=== PATIENT | female | born 1980 | race Caucasian/White ===

== ENCOUNTER 2019-04-28 11:37 | Emergency (ER) | payer OTHER ==
[~2019-04-28] VITALS: Ht 160 cm; Wt 88.5 kg
[2019-04-28] MEDS ORDERED: Prednisone20 MG PO (12:20)
== END 2019-04-28 12:28 | disposition home or self-care (01) ==
LOC: ER 11:37
DX: J32.0 Chronic maxillary sinusitis (principal); F17.200 Nicotine dependence, unspecified, uncomplicated; Z88.6 Allergy status to analgesic agent
CPT/HCPCS: 99283

== ENCOUNTER 2020-03-02 10:53 | Emergency (ER) | payer OTHER ==
[~2020-03-02] VITALS: Ht 160 cm; Wt 87.5 kg
[~2020-03-02 10:53] MED LIST: Prednisone20 MG PO
[2020-03-02 11:59] LABS: BASOPHILS PERCENT AUTO 1 % (0-2); EOSINOPHILS ABSOLUTE AUTO 0.18 K/mm3 (0.00-0.68); EOSINOPHILS PERCENT AUTO 2 % (0-6); Hematocrit 41.5 % (33.0-51.0); Hemoglobin 13.7 g/dL (11.5-16.0); IMMATURE GRAN ABSOLUTE AUTO 0.02 K/mm3 (0.00-0.10); IMMATURE GRAN PERCENT AUTO 0 % (0-1); LYMPHOCYTES ABSOLUTE AUTO 2.57 K/mm3 (0.84-5.20); LYMPHOCYTES PERCENT AUTO 29 % (21-46); MONOCYTES ABSOLUTE AUTO 0.54 K/mm3 (0.16-1.47); MONOCYTES PERCENT AUTO 6 % (4-13); Mean Corpuscular HGB 30.4 pg (26.0-34.0); Mean Corpuscular Volume 92 fL (80-100); Mean Platelet Volume 10.7 fL (9.1-12.4); NEUTROPHILS ABSOLUTE AUTO 5.45 K/mm3 (1.96-9.15); NEUTROPHILS PERCENT AUTO 62 % (41-73); Platelet Count 297 K/mm3 (150-400); RDW Coefficient Variation 13.3 % (11.7-14.2); RDW Standard Deviation 45.3 fL (35.1-46.3); White Blood Cell Count 8.86 K/mm3 (4.00-11.30)
[2020-03-02 12:10] LABS: Alanine Aminotransfer (ALT/SGP 51 U/L (12-78); Albumin, Blood 3.8 g/dL (3.4-5.0); Albumin/Globulin Ratio 1.1 (0.8-1.8); Alk Phos 75 U/L (50-136); Anion Gap 7 mmol/L (6-16); Aspartate Aminotrans (AST/SGOT 72 U/L (12-37); Bilirubin, Total 0.4 mg/dL (0.1-1.0); Blood Urea Nitrogen 16 mg/dL (8-24); CO2, Blood 23 mmol/L (21-32); Calcium, Blood 9.2 mg/dL (8.5-10.1); Chloride, Blood 108 mmol/L (98-108); Creatinine, Blood 0.84 mg/dL (0.40-1.00); Globulin, Blood 3.6 g/dL (2.2-4.0); Glomerular Filtration Rate >60 (60-); Glucose, Blood 91 mg/dL (70-99); Sodium, Blood 138 mmol/L (136-145); Total Protein, Blood 7.4 g/dL (6.4-8.2); Troponin I <0.015 ng/mL (0.000-0.040)
== END 2020-03-02 14:09 | disposition home or self-care (01) ==
LOC: ER 10:53
PROVIDERS: Emergency Medicine
DX: R10.13 Epigastric pain (principal); Z88.6 Allergy status to analgesic agent; Z79.52 Long term (current) use of systemic steroids
CPT/HCPCS: 71045; 80053; 83690; 84484; 85025; 85379; 93005; 93010; 96374; 99285-25; A9270; J1170

== ENCOUNTER 2020-07-17 08:47 | Emergency (ER) | payer OTHER ==
[~2020-07-17] VITALS: Ht 165.1 cm; Wt 79.4 kg
[2020-07-17] MEDS ORDERED: Norco 5-325 Ta1 EACH PO (09:19)
[2020-07-17] MEDS ORDERED: ONDA4ODT MM (09:19)
== END 2020-07-17 09:44 | disposition home or self-care (01) ==
LOC: ER 08:47
DX: M54.42 Lumbago with sciatica, left side (principal); Z91.010 Allergy to peanuts; Z88.6 Allergy status to analgesic agent
CPT/HCPCS: 96372; 99283-25; A9270; J1100; J1885

== ENCOUNTER 2021-05-27 06:27 | Emergency (ER) | payer OTHER ==
[~2021-05-27] VITALS: Ht 167.6 cm; Wt 94.3 kg
[~2021-05-27 06:27] MED LIST changes: +Norco 5-325 Ta1 EACH PO; +ONDA4ODT MM
[2021-05-27 08:30] LABS: Source, Urine Clean Catch
[2021-05-27 08:34] LABS: Bilirubin, Urine Neg (Neg); Blood, Urine 1+ (Neg); Glucose Qualitative, Urine Neg (Neg); Ketones, Urine 2+ (Neg); Leukocyte Esterase, Urine 3+ (Neg); Nitrite, Urine Neg (Neg); Protein, Urine 1+ (Neg); Specific Gravity, Urine 1.025 (1.003-1.022); Urobilinogen, Urine NORM (Normal)
[2021-05-27 08:41] LABS: Appearance, Urine Cloudy (Clear); Color, Urine Yellow (P-Yellow)
[2021-05-27 08:42] LABS: Mucus Light (0-Heavy); Squamous Epithelial Cells Many /hpf (Few)
[2021-05-27 08:43] LABS: Bacteria Mod /hpf
== END 2021-05-27 09:50 | disposition home or self-care (01) ==
LOC: ER 06:27
PROVIDERS: Emergency Medicine
DX: J06.9 Acute upper respiratory infection, unspecified (principal); H73.891 Other specified disorders of tympanic membrane, right ear; Z79.899 Other long term (current) drug therapy
CPT/HCPCS: 81001; 87086; 99284

== ENCOUNTER 2021-09-11 08:55 | Emergency (ER) | payer OTHER ==
[~2021-09-11] VITALS: Ht 167.6 cm; Wt 88.5 kg
[2021-09-11] MEDS ORDERED: Zofran4 MG PO (09:07)
== END 2021-09-11 09:19 | disposition home or self-care (01) ==
LOC: ER 08:55
DX: U07.1 COVID-19 (principal); Z88.6 Allergy status to analgesic agent; Z91.010 Allergy to peanuts
CPT/HCPCS: A9270

== ENCOUNTER 2022-01-05 00:46 | Emergency (ER) | payer OTHER ==
[~2022-01-05] VITALS: Ht 175.3 cm; Wt 94.3 kg
[~2022-01-05 00:46] MED LIST changes: +Zofran4 MG PO
[2022-01-05 02:29] LABS: Influenza B, PCR NEGATIVE (NEGATIVE); Resp Syncytial Virus, PCR NEGATIVE (NEGATIVE); SARS-Cov-2 (COVID-19) PCR, MMC NEGATIVE (NEGATIVE)
[2022-01-05 02:52] LABS: Influenza A, PCR POSITIVE (NEGATIVE)
== END 2022-01-05 01:20 | disposition left against medical advice (07) ==
LOC: ER 00:46
PROVIDERS: Student in an Organized Health Care Education/Training Program
DX: R05.9 Cough, unspecified (principal); Z53.21 Procedure and treatment not carried out due to patient leaving prior to being seen by health care provider; Z20.822 Contact with and (suspected) exposure to COVID-19
CPT/HCPCS: 0241U

== ENCOUNTER 2022-09-06 21:04 | Emergency (ER) | payer OTHER ==
[~2022-09-06] VITALS: Ht 170.2 cm; Wt 94.3 kg
[2022-09-06 21:34] LABS: BASOPHILS ABSOLUTE AUTO 0.09 K/mm3 (0.00-0.23); BASOPHILS PERCENT AUTO 1 % (0-2); EOSINOPHILS ABSOLUTE AUTO 0.23 K/mm3 (0.00-0.68); EOSINOPHILS PERCENT AUTO 2 % (0-6); Hematocrit 38.5 % (33.0-51.0); Hemoglobin 12.9 g/dL (11.5-16.0); IMMATURE GRAN ABSOLUTE AUTO 0.02 K/mm3 (0.00-0.10); IMMATURE GRAN PERCENT AUTO 0 % (0-1); LYMPHOCYTES ABSOLUTE AUTO 3.08 K/mm3 (0.84-5.20); LYMPHOCYTES PERCENT AUTO 30 % (21-46); MONOCYTES ABSOLUTE AUTO 0.84 K/mm3 (0.16-1.47); MONOCYTES PERCENT AUTO 8 % (4-13); Mean Corpuscular HGB 31.1 pg (26.0-34.0); Mean Corpuscular HGB Conc 33.5 g/dL (31.5-36.5); Mean Corpuscular Volume 93 fL (80-100); Mean Platelet Volume 10.8 fL (9.1-12.4); NEUTROPHILS ABSOLUTE AUTO 5.98 K/mm3 (1.96-9.15); NEUTROPHILS PERCENT AUTO 58 % (41-73); Platelet Count 258 K/mm3 (150-400); RDW Coefficient Variation 13.2 % (11.7-14.2); RDW Standard Deviation 45.1 fL (35.1-46.3); Red Blood Cell Count 4.15 M/mm3 (3.80-5.20); White Blood Cell Count 10.24 K/mm3 (4.00-11.30)
[2022-09-06 21:59] LABS: Albumin, Blood 3.8 g/dL (3.4-5.0); Albumin/Globulin Ratio 1.2 (0.8-1.8); Bilirubin, Total 0.3 mg/dL (0.1-1.0); Calcium, Blood 8.6 mg/dL (8.5-10.1); Creatinine, Blood 0.93 mg/dL (0.40-1.00); Globulin, Blood 3.3 g/dL (2.2-4.0); Potassium, Blood 3.9 mmol/L (3.5-5.5); Total Protein, Blood 7.1 g/dL (6.4-8.2)
[2022-09-07 00:47] VITALS: BP 111/61
== END 2022-09-07 00:47 | disposition home or self-care (01) ==
LOC: ER 21:04
PROVIDERS: Emergency Medicine
DX: R07.89 Other chest pain (principal); R55 Syncope and collapse; I25.2 Old myocardial infarction; Z88.6 Allergy status to analgesic agent
CPT/HCPCS: 71045; 80053; 84484; 85025; 85379; 93005; 93010; 96374; 99285-25; J2405

== ENCOUNTER 2022-10-02 07:56 | Observation (INO) | payer OTHER ==
[~2022-10-02] VITALS: Ht 170.2 cm; Wt 92.5 kg
--- NOTE | 2022-10-02 08:15 | NUR ---
PT ADMIT TO ROOM, WALKIN FROM [place]. A/O X3, DENIES CHEST PAIN, OR PRESSURE AT THIS TIME. H/R REG, BUT NURIS, 54. NO MURMUR NOTED. NO TELE ORDER YET. NO EDEMA. LUNGS CLEAR, RESP EASY, UNLABORED. ON R.A. BT X4 LAST BM YEST PER PT. VOIDS SBA TO BATHROOM. FALL RISK. HAS PASSED OUT AT HOME IN LAST FEW DAYS. LITE BRUISE RT JAW. PT EXPRESSES ABILITY TO CALL FOR ASST FOR AMBULATION. BED IN LOW POSITION, CALL LITE IN REACH, CALLS APPROP. DR BAKER CALLED AND ADVISED PT IN ROOM. ORDER FOR TELE. MIGUEL ÁNGEL WOLF.
[2022-10-02 08:19] VITALS: BP 116/62
[2022-10-02 10:00] LABS: BASOPHILS ABSOLUTE AUTO 0.07 K/mm3 (0.00-0.23); BASOPHILS PERCENT AUTO 1 % (0-2); EOSINOPHILS ABSOLUTE AUTO 0.08 K/mm3 (0.00-0.68); EOSINOPHILS PERCENT AUTO 1 % (0-6); Hematocrit 38.2 % (33.0-51.0); Hemoglobin 12.9 g/dL (11.5-16.0); IMMATURE GRAN ABSOLUTE AUTO 0.04 K/mm3 (0.00-0.10); IMMATURE GRAN PERCENT AUTO 0 % (0-1); LYMPHOCYTES ABSOLUTE AUTO 1.64 K/mm3 (0.84-5.20); LYMPHOCYTES PERCENT AUTO 18 % (21-46); MONOCYTES ABSOLUTE AUTO 0.71 K/mm3 (0.16-1.47); MONOCYTES PERCENT AUTO 8 % (4-13); Mean Corpuscular HGB 30.4 pg (26.0-34.0); Mean Corpuscular HGB Conc 33.8 g/dL (31.5-36.5); Mean Corpuscular Volume 90 fL (80-100); NEUTROPHILS ABSOLUTE AUTO 6.61 K/mm3 (1.96-9.15); NEUTROPHILS PERCENT AUTO 72 % (41-73); Platelet Count 204 K/mm3 (150-400); RDW Standard Deviation 42.5 fL (35.1-46.3); Red Blood Cell Count 4.24 M/mm3 (3.80-5.20); White Blood Cell Count 9.15 K/mm3 (4.00-11.30)
[2022-10-02 10:17] LABS: Magnesium, Blood 2.1 mg/dL (1.6-2.4)
[2022-10-02 10:27] LABS: Albumin, Blood 3.7 g/dL (3.4-5.0); Albumin/Globulin Ratio 1.2 (0.8-1.8); Bilirubin, Total 0.6 mg/dL (0.1-1.0); Bun/Creatinine Ratio 11.9 (12.0-20.0); Calcium, Blood 8.5 mg/dL (8.5-10.1); Creatinine, Blood 0.76 mg/dL (0.40-1.00); Globulin, Blood 3.2 g/dL (2.2-4.0); Phosphorus, Blood 2.9 mg/dL (2.5-4.9); Potassium, Blood 3.7 mmol/L (3.5-5.5); Thyroid Stimulating Hormone 3.24 uIU/mL (0.360-4.800); Total Protein, Blood 6.9 g/dL (6.4-8.2)
--- NOTE | 2022-10-02 11:23 | NUR ---
PER ULTRASOUND, PT TO UNDERGO STRESS TEST HALF TODAY, HALF TOMORROW. PICS AT 11AM TODAY. OKAY TO EAT. NO CAFFEINE AFTER 7PM TONITE (TUES). NPO MIDNITE EXCEPT H2O AND MEDS.
[2022-10-02 15:24] VITALS: BP 111/58
--- NOTE | 2022-10-02 16:52 | NUR ---
Upon receiving a referral for spiritual care, I visited the patient. She tells me about her medical problems and her fears associated with them. 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 I normalize her experince, and provide therapeutic listening, anxiety containment and a calming presence. Patient responded well and showed signs of reduced stress. I will continue to remain available to patient and family.
--- NOTE | 2022-10-02 19:25 | NUR ---
pt quite pleasant today. no c/o chest pain or pressure. part 1 stress test done today. npo midnite and no caffeine after 7pm tonite. juno harris notified at report. pt admits to sob for last few days. no other symptoms reported. h/r is edilia. dr notified. ekg done and dr called. no other concerns noted. bed in low [facility], call lite in reach calls aprop
[2022-10-02 20:07] VITALS: BP 115/62
[2022-10-02 23:28] VITALS: BP 115/63
--- NOTE | 2022-10-03 00:08 | NUR ---
AT 23:25 TELE REPORTS BRIEF EPISODE OF HR NURIS IN 30s. PATIENT STATES SHE WAS JUST SLEEPING. STATES BRIEF, 3/10 MILD CHEST PAIN UPON BEING WOKEN UP, DENIES ALL OTHER SYMPTOMS. OBTAINED VS, NO ACUTE CHANGES. PROVIDER NOTIFIED, NO NEW ORDERS, WILL OBTAIN EKG IF NURIS IN 30s AGAIN.
[2022-10-03 04:35] VITALS: BP 113/56
--- NOTE | 2022-10-03 04:46 | NUR ---
SHIFT SUMMARY PATIENT A/0x4, DENIES PAIN NOR DISCOMFORT AT TIME OF ASSESSMENT. COMPLIANT WITH NPO STATUS. CONTINUES ON TELEMETRY, HAD BRIEF EPISODE OF SB IN 30s, PROVIDER AWARE, NO FURTHER EVENTS AT THIS TIME, CONTINUES TO BE NURIS IN 50s. INDEPENDANT IN ROOM. PIV TO LEFT AC, PATENT, SL. C/O HEADACHE THIS AM, RECEIVED NEW ORDER FOR PRN TYLENOL, eMAR UPDATED. DENIES CHEST PAIN/PRESSURE AT THIS TIME. BED LOW, CALL LIGHT WITHIN REACH.
[2022-10-03 05:01] LABS: BASOPHILS ABSOLUTE AUTO 0.08 K/mm3 (0.00-0.23); BASOPHILS PERCENT AUTO 1 % (0-2); EOSINOPHILS ABSOLUTE AUTO 0.14 K/mm3 (0.00-0.68); EOSINOPHILS PERCENT AUTO 2 % (0-6); Hematocrit 37.6 % (33.0-51.0); Hemoglobin 12.8 g/dL (11.5-16.0); IMMATURE GRAN ABSOLUTE AUTO 0.02 K/mm3 (0.00-0.10); IMMATURE GRAN PERCENT AUTO 0 % (0-1); LYMPHOCYTES ABSOLUTE AUTO 1.98 K/mm3 (0.84-5.20); LYMPHOCYTES PERCENT AUTO 25 % (21-46); MONOCYTES ABSOLUTE AUTO 0.85 K/mm3 (0.16-1.47); MONOCYTES PERCENT AUTO 11 % (4-13); Mean Corpuscular HGB 30.8 pg (26.0-34.0); Mean Corpuscular Volume 91 fL (80-100); Mean Platelet Volume 10.3 fL (9.1-12.4); NEUTROPHILS PERCENT AUTO 61 % (41-73); Platelet Count 221 K/mm3 (150-400); RDW Coefficient Variation 12.9 % (11.7-14.2); RDW Standard Deviation 42.9 fL (35.1-46.3); Red Blood Cell Count 4.15 M/mm3 (3.80-5.20); White Blood Cell Count 7.87 K/mm3 (4.00-11.30)
[2022-10-03 05:34] LABS: Albumin, Blood 3.4 g/dL (3.4-5.0); Anion Gap 9 mmol/L (6-16); Blood Urea Nitrogen 11 mg/dL (8-24); Bun/Creatinine Ratio 13.9 (12.0-20.0); CHOL/HDL RATIO 2.8; CO2, Blood 21 mmol/L (21-32); Calcium, Blood 8.4 mg/dL (8.5-10.1); Chloride, Blood 113 mmol/L (98-108); Cholesterol 136 mg/dL (50-200); Creatinine, Blood 0.79 mg/dL (0.40-1.00); Glomerular Filtration Rate 95 (60-); Glucose, Blood 89 mg/dL (70-99); HDL Cholesterol 48 mg/dL (>39); LDL/HDL RATIO 1.6; Low Density Lipoprotein Chol 78 mg/dL (0-110); Magnesium, Blood 2.1 mg/dL (1.6-2.4); Phosphorus, Blood 3.4 mg/dL (2.5-4.9); Potassium, Blood 3.8 mmol/L (3.5-5.5); Sodium, Blood 143 mmol/L (136-145); Triglycerides 49 mg/dL (30-160); Very Low Density Lipoprot Chol 9 mg/dL (6-32)
[2022-10-03 07:31] VITALS: BP 96/63
--- NOTE | 2022-10-03 11:58 | NUR ---
Patient is sitting up in bed and alert. She tells me about the concerning events that happened the prior night and the fears that she has going into this day. She shares about how her kids and grandkids are a source of inspiration to her, she also explains about a daily Bible devotion that she reads from her phone every morningthat encourages her as well. I provide therapetuic listening, anxiety containment and prayer. Patient responded well and displayed evidence of reduced stress. I will continue to remain available to patient and family.
[2022-10-03 14:58] VITALS: BP 112/64
--- NOTE | 2022-10-03 15:51 | NUR ---
SHIFT SUMMARY PT AWAKE DURING SHIFT REPORT THIS AM, WATCHING TV. PT WAS NPO FOR STRESS TEST THIS AM. NUC MED CALLED TO REPORT PT TO EAT BREAKFAST AND THEN BE NPO EXCEPT WATER AT LUNCH. HRT CENTER TO THIS AFTERNOON AND THEN PT ALLOWED TO EAT LUNCH. PT TAKE DOWN TO IMAGING FOR MORE PICTURES AFTER THAT. UP INDEPENDENTLY IN AND TO [facility]. C/O RICH D/T LACK OF CAFFIENE; MEDICATED PER EMAR AND DR BAKER. PT LATER REPORTED NAUSEA D/T INJECTION OF STRESS TEST MEDICATIONS; REQUESTED SPRITE AND SALTINES. RESTING QUIETLY WATCHING TV AT THIS TIME. DENIES FURTHER NEEDS. CALL LT IN REACH. DR BAKER TO RETURN LATER TO UPDATE PT ON STRESS TEST RESULTS.
[2022-10-03 19:39] VITALS: BP 111/70
[2022-10-03 22:34] VITALS: BP 112/65
--- NOTE | 2022-10-03 22:48 | NUR ---
PATIENT HAVING AN EPISODE OF CHEST PAIN 07/21 THAT STARTED SUDDENLY. TRAV KESSLER NOTIFIED AND TORADOL AND NITOR X1 DOSE ORDERED. PATIENT IS NOT SHORT OF BREATH AND VITAL SIGNS STABLE THIS TIME. NO CHANGES ON TELEMETRY, PATIENT REMAINS SINUS NURIS IN THE 50'S.
[2022-10-04 03:57] VITALS: BP 119/63
--- NOTE | 2022-10-04 05:38 | NUR ---
PATIENT SLEPT WELL AFTER EPISODE OF 6/10 CHEST PAIN. PATIENT WANTED TO TRY TORADOL FOR PAIN BEFORE TRYING NITRO AND TORADOL WAS AFFECTIVE. PATIENT SINUS NURIS ON TELE, DID HAVE A 2 EPISODES WHERE HR WENT DOWN IN THE 30'S WHILE PATIENT ASLEEP. PATIENT IS A/OX4, UP INDEPENDENTLY IN ROOM. NO OTHER CHANGES THIS SHIFT.
[2022-10-04 07:50] VITALS: BP 103/59
[2022-10-04 10:03] VITALS: BP 110/59
[2022-10-04 10:04] VITALS: BP 107/65
[2022-10-04 10:06] VITALS: BP 118/70
--- NOTE | 2022-10-04 14:34 | NUR ---
PT AWAKE DURING SHIFT REPORT, SITTING UP IN BED. PT HOPING TO GO HOME THIS AM. DR BAKER IN EARLY TO SEE PT AND DISCUSS PLAN OF CARE. DR BAKER WALKED PT IN HALLS AND STAIRWAY WHILE ON TELE TO [facility] HRT RATE. ORTHOSTATIC VS COMPLETED PER ORDERS WELL LAB ORDER. D/C ORDERS PLACED AND REVIEWED WITH PT; VERBALIZED UNDERSTANDING. PT TO F/U AT [facility] PER ORDERS. PCP TO ASSIST PT IN F/U WITH CARDIOLOGY AND ADDITIONAL LAB WORK OUTPT. IV SITE D/C'D WNL'S. PT UP TO SHOWER INDEPENDENTLY AND THEN CALLED TO PICK HER UP. PT DENIED FURTHER NEEDS. D/C INSTRUCTIONS GIVEN. NO NEW MEDICATIONS ORDERED.
[2022-10-10 22:06] LABS: IGG P18 AB. Absent (.); IGG P23 AB. Absent (.); IGG P28 AB. Absent (.); IGG P30 AB. Absent (.); IGG P39 AB. Absent (.); IGG P41 AB. Absent (.); IGG P45 AB. Absent (.); IGG P58 AB. Absent (.); IGG P66 AB. Absent (.); IGG P93 AB. Absent (.); IGM P23 AB. Absent (.); IGM P39 AB. Absent (.); IGM P41 AB. Absent (.); LYME IGG LB INTERP. Negative (.); LYME IGM LB INTERP. Negative (.)
== END 2022-10-04 13:25 | disposition home or self-care (01) ==
LOC: MEDS 07:56
PROVIDERS: ADMIT Family Medicine
DX: R07.89 Other chest pain (principal); R00.1 Bradycardia, unspecified; F41.9 Anxiety disorder, unspecified; F32.A Depression, unspecified; Z87.891 Personal history of nicotine dependence; F12.980 Cannabis use, unspecified with anxiety disorder
CPT/HCPCS: 36415; 78452; 80053; 80061; 80069; 83036; 83735; 84100; 84443; 84484; 85025; 93017; 93306; 96372; 96374; A9270; A9500; G0378; G0379; J1644; J1885; J2785

== ENCOUNTER → 2023-02-06 | Outpatient (CLI) | payer OTHER ==
[2023-02-07 09:45] LABS: Candida species (DNA Probe) Negative (NEGATIVE); G. vaginalis (DNA Probe) Positive (NEGATIVE); T. vaginalis (DNA Probe) Negative (NEGATIVE)
[2023-02-08 18:09] LABS: C. TRACHOMATIS BY TMA,THINPREP Negative (Negative); N. GONORRHOEAE BY TMA,THINPREP Negative (Negative); SPECIMEN SOURCE Cervical
== END | disposition home or self-care (01) ==
LOC: LAB 11:16 → LAB SHORT 11:16
PROVIDERS: Advanced Practice Midwife
DX: Z01.419 Encounter for gynecological examination (general) (routine) without abnormal findings (principal); Z11.3 Encounter for screening for infections with a predominantly sexual mode of transmission; N76.0 Acute vaginitis
CPT/HCPCS: 87480; 87510; 87660

== ENCOUNTER → 2023-03-01 | Outpatient (CLI) | payer OTHER | LOC: LAB 13:33 → LAB SHORT 13:33 | DX: D06.9 Carcinoma in situ of cervix, unspecified (principal) | CPT/HCPCS: 88305 ==

== ENCOUNTER 2023-11-05 19:10 | Emergency (ER) | payer OTHER ==
[~2023-11-05] VITALS: Ht 167.6 cm; Wt 92.1 kg
[2023-11-05] MEDS ORDERED: QUETIAPINE FUM10011 PO (19:18)
[2023-11-05] MEDS ORDERED: TERB250 PO (19:18)
[2023-11-05] MEDS ORDERED: Ondansetron HCl 2 MG / ML 2ML Vial IV PRN (19:20)
[2023-11-05 20:00] LABS: BASOPHILS ABSOLUTE AUTO 0.07 K/mm3 (0.00-0.23); BASOPHILS PERCENT AUTO 1 % (0-2); EOSINOPHILS ABSOLUTE AUTO 0.06 K/mm3 (0.00-0.68); EOSINOPHILS PERCENT AUTO 1 % (0-6); Hematocrit 43.5 % (33.0-51.0); Hemoglobin 14.6 g/dL (11.5-16.0); IMMATURE GRAN ABSOLUTE AUTO 0.04 K/mm3 (0.00-0.10); IMMATURE GRAN PERCENT AUTO 0 % (0-1); LYMPHOCYTES ABSOLUTE AUTO 1.22 K/mm3 (0.84-5.20); LYMPHOCYTES PERCENT AUTO 12 % (21-46); MONOCYTES PERCENT AUTO 10 % (4-13); Mean Corpuscular HGB 30.9 pg (26.0-34.0); Mean Corpuscular HGB Conc 33.6 g/dL (31.5-36.5); Mean Corpuscular Volume 92 fL (80-100); Mean Platelet Volume 9.6 fL (9.1-12.4); NEUTROPHILS ABSOLUTE AUTO 7.68 K/mm3 (1.96-9.15); NEUTROPHILS PERCENT AUTO 76 % (41-73); Platelet Count 276 K/mm3 (150-400); RDW Coefficient Variation 13.7 % (11.7-14.2); RDW Standard Deviation 46.9 fL (35.1-46.3); Red Blood Cell Count 4.73 M/mm3 (3.80-5.20); White Blood Cell Count 10.07 K/mm3 (4.00-11.30)
[2023-11-05 20:20] LABS: Albumin, Blood 3.7 g/dL (3.4-5.0); Albumin/Globulin Ratio 0.9 (0.8-1.8); Bilirubin, Total 0.3 mg/dL (0.1-1.0); Calcium, Blood 9.2 mg/dL (8.5-10.1); Creatinine, Blood 0.8 mg/dL (0.40-1.00); Globulin, Blood 4.3 g/dL (2.2-4.0); Potassium, Blood 3.8 mmol/L (3.5-5.5)
[2023-11-05] MEDS ORDERED: NS 1,000 ML IV SCH (22:20)
[2023-11-05 22:48] LABS: Source, Urine Clean Catch
[2023-11-05 22:50] LABS: Bilirubin, Urine Neg (Neg); Blood, Urine Neg (Neg); Glucose Qualitative, Urine Neg (Neg); Ketones, Urine 2+ (Neg); Leukocyte Esterase, Urine 1+ (Neg); Nitrite, Urine Neg (Neg); Protein, Urine 2+ (Neg); Urobilinogen, Urine NORM (Normal)
[2023-11-05 22:58] LABS: Appearance, Urine Clear (Clear); Color, Urine Yellow (P-Yellow); Hyaline Casts 0-2 /lpf (0-2)
[2023-11-05 22:59] LABS: Bacteria Few /hpf; Red Blood Cells, Urine Not Seen /hpf (0-2); Squamous Epithelial Cells Few /hpf (Few)
[2023-11-05] MEDS ORDERED: Ketorolac Tromethamine 30mg Vial IV ONE (23:10)
[2023-11-06] MEDS ORDERED: CEPH500 PO (01:42)
[2023-11-06] MEDS ORDERED: CefTRIAXone Sodium 1,000 MG in NS 50 ML IV ONE (01:45)
[2023-11-06 02:00] VITALS: BP 124/65
== END 2023-11-06 02:54 | disposition home or self-care (01) ==
LOC: ER 19:10
PROVIDERS: Emergency Medicine
DX: N39.0 Urinary tract infection, site not specified (principal); R11.2 Nausea with vomiting, unspecified; Z79.899 Other long term (current) drug therapy
CPT/HCPCS: 74177; 80053; 81001; 83690; 84703; 85025; 96365-59; 96375; 99284-25; J0696; J1885; J2405; J7030; Q9967

== ENCOUNTER 2024-02-27 07:54 | Day surgery (SDC) | payer OTHER ==
[2024-02-27] VITALS (20 sets, daily range): BP systolic 96–131; BP diastolic 57–82
[~2024-02-27] VITALS: Ht 167.6 cm; Wt 93.2 kg
[~2024-02-27 07:54] MED LIST changes: +ALBU90OI INH; +CEPH500 PO; +CeFAZolin Sodium 2,000 MG in NS 100 ML IV SCH; +Lactated Ringer's 1,000 ML IV SCH; +Phenazopyridine HCl 100 MG Tab PO ONE; +QUETIAPINE FUM10011 PO; +TERB250 PO
--- NOTE | 2024-02-27 08:48 | NUR ---
Ambulatory in Day Surgery. History, Chart, Medications and Allergies reviewed before start of procedure. Lungs clear T/O to Auscultation. Patient confirms NPO status and agrees with scheduled surgery. Pre-Op teaching done. Pt verbalizes understanding. PT BELONGINGS PLACED UNDERNEATH GURNEY FOR SAFEKEEPING.
[2024-02-27] MEDS ORDERED: Bupivacaine 0.5% HCl 5 MG/ML 30MLVIAL ONE (10:10)
[2024-02-27] MEDS ORDERED: propofoL 20 ML IV ONE ×2 (10:17→10:25)
[2024-02-27] MEDS ORDERED: FentaNYL Citrate 50 MCG/ML 2 ML Injection ONE ×2 (10:17→11:15)
[2024-02-27] MEDS ORDERED: Rocuronium Bromide 10 MG/ML 5ML Injection IV ONE ×2 (10:17→11:01)
[2024-02-27] MEDS ORDERED: Glycopyrrolate 0.2 MG/ML 5ML VIAL ONE (10:38)
[2024-02-27] MEDS ORDERED: Dexamethasone Sod Phos 10 MG/ML 1ML VIAL ONE (10:47)
[2024-02-27] MEDS ORDERED: Sugammadex Sodium 200 MG/2ML SDV (100 MG/ML) ONE (13:39)
[2024-02-27] MEDS ORDERED: Ondansetron HCl 2 MG / ML 2ML Vial ONE ×2 (13:39→14:56)
[2024-02-27] MEDS ORDERED: Albuterol HFA200 ACT/6.7 GM INH INH PRN (14:45)
[2024-02-27] MEDS ORDERED: Simethicone 80 MG Chew PO PRN (14:45)
[2024-02-27] MEDS ORDERED: Ondansetron HCl 2 MG / ML 2ML Vial IV PRN (14:50)
[2024-02-27] MEDS ORDERED: Lactated Ringer's 1,000 ML IV SCH (14:50)
[2024-02-27] MEDS ORDERED: Metoclopramide HCl 5MG / ML 2ML Vial IV PRN (14:50)
[2024-02-27] MEDS ORDERED: Naloxone HCl 0.4MG / ML 1ML Vial IV PRN (14:50)
[2024-02-27] MEDS ORDERED: OxyCODONE HCL 5 MG TAB PO PRN ×2 (14:50)
[2024-02-27] MEDS ORDERED: HYDROmorphone HCl/Pf 1MG SYR IV PRN (14:55)
[2024-02-27] MEDS ORDERED: FLU VACC TS2024-25(6MOS UP)/PF 45 MCG/0.5 ML SYRINGE IM SCH (14:55)
[2024-02-27] MEDS ORDERED: DiphenhydrAMINE HCL 25 MG Cap PO PRN (14:55)
[2024-02-27] MEDS ORDERED: Ibuprofen 400 MG Tab PO SCH (16:00)
--- NOTE | 2024-02-27 17:43 | NUR ---
SHIFT SUMMARY PATIENT POD0 LAP HYSTER, X4 LAP SITES WITH OWUND GLUE C/D/I. AOX4. REPORTS NAUSEA AND PAIN MEDICATED FOR BOTH AND TOLERATED WELL. UP TO THE BATHROOM WITH SBA, AWAITING SPONTANEOUS VOID. BLADDER SCAN PRN. PATIENT TOLERATING SIPS OF CL AT THIS TIME AND IS RESTING WITH A K-PAD.
[2024-02-27] MEDS ORDERED: Acetaminophen 500 MG Tab PO SCH (18:00)
[2024-02-27] MEDS ORDERED: Ketorolac Tromethamine 30mg Vial IV SCH (18:00)
[2024-02-27] MEDS ORDERED: QUEtiapine Fumarate 100 MG Tab PO SCH (21:00)
[2024-02-28 03:20] VITALS: BP 103/57
--- NOTE | 2024-02-28 04:18 | NUR ---
SHIFT SUMMARY WESLY WAS ALERT AND FULLY ORIENTED ON ASSESMENT. SHE IS NOW POD1 FOR A LAP HYSTER. PT AMBULATING AND VOIDING APPROPRIATELY. LAP SITES C/D/I. SOME BLOOD NOTED IN URINE, MINIMAL SATURATION NOTED TO VAGINAL PAD. PAIN RESPONDING WELL TO MEDICATION. NO ACUTE EVENTS TONIGHT, NO CHANGES TO PT CONDITION.
[2024-02-28 05:24] LABS: BASOPHILS ABSOLUTE AUTO 0.08 K/mm3 (0.00-0.23); BASOPHILS PERCENT AUTO 1 % (0-2); EOSINOPHILS ABSOLUTE AUTO 0.02 K/mm3 (0.00-0.68); EOSINOPHILS PERCENT AUTO 0 % (0-6); Hematocrit 35.1 % (33.0-51.0); Hemoglobin 11.9 g/dL (11.5-16.0); IMMATURE GRAN ABSOLUTE AUTO 0.05 K/mm3 (0.00-0.10); IMMATURE GRAN PERCENT AUTO 0 % (0-1); LYMPHOCYTES PERCENT AUTO 15 % (21-46); MONOCYTES ABSOLUTE AUTO 1.36 K/mm3 (0.16-1.47); MONOCYTES PERCENT AUTO 10 % (4-13); Mean Corpuscular HGB 31.3 pg (26.0-34.0); Mean Corpuscular HGB Conc 33.9 g/dL (31.5-36.5); Mean Corpuscular Volume 92 fL (80-100); Mean Platelet Volume 10.3 fL (9.1-12.4); NEUTROPHILS ABSOLUTE AUTO 9.74 K/mm3 (1.96-9.15); NEUTROPHILS PERCENT AUTO 73 % (41-73); Platelet Count 226 K/mm3 (150-400); RDW Coefficient Variation 13.2 % (11.7-14.2); White Blood Cell Count 13.25 K/mm3 (4.00-11.30)
[2024-02-28 07:00] VITALS: BP 111/48
[2024-02-28] MEDS ORDERED: ACET500 PO (08:38)
[2024-02-28] MEDS ORDERED: ONDA4 PO (08:38)
[2024-02-28] MEDS ORDERED: IBUP800 PO (08:38)
[2024-02-28] MEDS ORDERED: OXAYDO5 M1 PO (08:39)
[2024-02-28] MEDS ORDERED: Polyethylene Glycol 3350 17 gm PO SCH (09:00)
[2024-02-28] MEDS ORDERED: Enoxaparin 40 MG/0.4 ML SYR SC SCH (09:00)
== END 2024-02-28 09:00 | disposition home or self-care (01) ==
LOC: ORSCMMR 07:54 → ORD 13:15 → SURS 15:16 → ORSCMMR 02-28 09:00 → SURS 02-28 09:00
PROVIDERS: Obstetrics & Gynecology
PROC: 0UT9FZZ Resection of Uterus, Via Natural or Artificial Opening With Percutaneous Endoscopic Assistance (ICD-10-PCS; principal; 2024-02-27 10:00)
PROC: 0UT7FZZ Resection of Bilateral Fallopian Tubes, Via Natural or Artificial Opening With Percutaneous Endoscopic Assistance (ICD-10-PCS; principal; 2024-02-27 10:00)
DX: D06.9 Carcinoma in situ of cervix, unspecified (principal); N93.9 Abnormal uterine and vaginal bleeding, unspecified; N80.03 Adenomyosis of the uterus; N80.329 Endometriosis of the posterior cul-de-sac, unspecified depth; N73.6 Female pelvic peritoneal adhesions (postinfective); J45.909 Unspecified asthma, uncomplicated; Z79.899 Other long term (current) drug therapy; F31.9 Bipolar disorder, unspecified; F43.10 Post-traumatic stress disorder, unspecified; E66.9 Obesity, unspecified; Z68.33 Body mass index [BMI] 33.0-33.9, adult
CPT/HCPCS: 36415; 85025; 86850; 86900; 86901; 88307; 94762; A9270; J0690; J1100; J1171; J1885; J2405; J2704; J3010; J7120

== ENCOUNTER 2024-03-06 20:15 | Emergency (ER) | payer OTHER ==
[~2024-03-06] VITALS: Ht 167.6 cm; Wt 93.0 kg
[~2024-03-06 20:15] MED LIST changes: +ACET500 PO; -CeFAZolin Sodium 2,000 MG in NS 100 ML IV SCH; +IBUP800 PO; -Lactated Ringer's 1,000 ML IV SCH; +ONDA4 PO; +OXAYDO5 M1 PO; -Phenazopyridine HCl 100 MG Tab PO ONE
[2024-03-06] MEDS ORDERED: Famotidine 10 MG/ML 2ML Vial IV ONE ×2 (20:55→23:50)
[2024-03-06] MEDS ORDERED: DiphenhydrAMINE HCl 50 MG/ML 1ML Vial IV ONE ×2 (20:55→23:50)
[2024-03-06] MEDS ORDERED: MethylPREDNISolone Sod Succ 125 MG Vial IV ONE ×2 (20:55→23:50)
[2024-03-07] MEDS ORDERED: CEPH500 PO (02:17)
[2024-03-07 02:30] VITALS: BP 121/73
== END 2024-03-07 02:38 | disposition home or self-care (01) ==
LOC: ER 20:15
DX: L03.319 Cellulitis of trunk, unspecified (principal); L03.116 Cellulitis of left lower limb; L03.115 Cellulitis of right lower limb; T78.40XA Allergy, unspecified, initial encounter; F17.290 Nicotine dependence, other tobacco product, uncomplicated; F41.9 Anxiety disorder, unspecified; Z79.899 Other long term (current) drug therapy; Z88.8 Allergy status to other drugs, medicaments and biological substances; Z79.51 Long term (current) use of inhaled steroids; Z79.1 Long term (current) use of non-steroidal anti-inflammatories (NSAID); Z79.891 Long term (current) use of opiate analgesic
CPT/HCPCS: 96374; 96375; 99283-25; J1200; J2919

== ENCOUNTER 2024-03-22 17:06 | Emergency (ER) | payer OTHER ==
[~2024-03-22] VITALS: Ht 170.2 cm; Wt 93.0 kg
[2024-03-22 17:20] VITALS: BP 124/59
[2024-03-22 17:34] LABS: Source, Urine Clean Catch
[2024-03-22 17:44] LABS: Appearance, Urine Clear (Clear); Bilirubin, Urine Neg (Neg); Blood, Urine Neg (Neg); Glucose Qualitative, Urine Neg (Neg); Ketones, Urine Neg (Neg); Leukocyte Esterase, Urine Neg (Neg); Nitrite, Urine Neg (Neg); Protein, Urine Neg (Neg); Specific Gravity, Urine 1.005 (1.003-1.022); Urobilinogen, Urine NORM (Normal)
[2024-03-22 17:45] LABS: Color, Urine Pale Yellow (P-Yellow)
[2024-03-22 17:47] LABS: BASOPHILS ABSOLUTE AUTO 0.07 K/mm3 (0.00-0.23); BASOPHILS PERCENT AUTO 1 % (0-2); EOSINOPHILS ABSOLUTE AUTO 0.54 K/mm3 (0.00-0.68); EOSINOPHILS PERCENT AUTO 6 % (0-6); Hematocrit 36.1 % (33.0-51.0); Hemoglobin 11.8 g/dL (11.5-16.0); IMMATURE GRAN ABSOLUTE AUTO 0.02 K/mm3 (0.00-0.10); IMMATURE GRAN PERCENT AUTO 0 % (0-1); LYMPHOCYTES ABSOLUTE AUTO 1.79 K/mm3 (0.84-5.20); LYMPHOCYTES PERCENT AUTO 21 % (21-46); MONOCYTES PERCENT AUTO 10 % (4-13); Mean Corpuscular HGB 30.7 pg (26.0-34.0); Mean Corpuscular HGB Conc 32.7 g/dL (31.5-36.5); Mean Corpuscular Volume 94 fL (80-100); Mean Platelet Volume 10.2 fL (9.1-12.4); NEUTROPHILS ABSOLUTE AUTO 5.39 K/mm3 (1.96-9.15); NEUTROPHILS PERCENT AUTO 62 % (41-73); Platelet Count 220 K/mm3 (150-400); RDW Coefficient Variation 13.9 % (11.7-14.2); RDW Standard Deviation 47.5 fL (35.1-46.3); Red Blood Cell Count 3.84 M/mm3 (3.80-5.20); White Blood Cell Count 8.71 K/mm3 (4.00-11.30)
[2024-03-22 18:14] LABS: Albumin, Blood 3.6 g/dL (3.4-5.0); Albumin/Globulin Ratio 1.1 (0.8-1.8); Bilirubin, Total 0.3 mg/dL (0.1-1.0); Bun/Creatinine Ratio 17.1 (12.0-20.0); Calcium, Blood 8.6 mg/dL (8.5-10.1); Creatinine, Blood 0.82 mg/dL (0.40-1.00); Globulin, Blood 3.4 g/dL (2.2-4.0); Potassium, Blood 3.5 mmol/L (3.5-5.5)
== END 2024-03-22 19:49 | disposition left against medical advice (07) ==
LOC: ER 17:06
PROVIDERS: Physician Assistant
DX: N99.820 Postprocedural hemorrhage of a genitourinary system organ or structure following a genitourinary system procedure (principal); Z53.21 Procedure and treatment not carried out due to patient leaving prior to being seen by health care provider
CPT/HCPCS: 80053; 81003; 85025; 99281